=== PATIENT | male | born 1985 | race African-American/Black ===

== ENCOUNTER 2020-06-22 15:32 | Inpatient (IN) | payer OTHER ==
[2020-06-22 17:01] VITALS: BMI 207.3
[2020-06-22] MEDS ORDERED: ACETAMINOPHEN 325 MG TABLET (FP) PO PRN ×2 (17:09)
[2020-06-22] MEDS ORDERED: IBUPROFEN 400 MG TABLET (FP) PO PRN (17:09)
[2020-06-22] MEDS ORDERED: NICOTINE POLACRILEX 2 MG GUM BUC PRN (17:09)
[2020-06-22] MEDS ORDERED: ONDANSETRON *ODT* 4 MG TABLET SL PRN (17:09)
[2020-06-22] MEDS ORDERED: MAGNESIUM HYDROX 2400MG/30ML ORAL SUSPENSION 30 ML CUP PO PRN (17:09)
[2020-06-22] MEDS ORDERED: MAGNESIUM CITRATE 300 ML BOTTLE PO PRN (17:09)
[2020-06-22] MEDS ORDERED: BISMUTH SUBSALICYLATE 524 MG/30 ML UD PO PRN (17:09)
[2020-06-22] MEDS ORDERED: MAG HYDROX/AL HYDROX/SIMETH 30 ML UNIT-DOSE CUP PO PRN (17:09)
[2020-06-22] MEDS ORDERED: MENTHOL/PHENOL 1 EACH UD MM PRN (17:09)
[2020-06-22] MEDS: diazePAM 5 MG TABLET PO SCH ×2 (18:08→22:18)
[2020-06-22] MEDS: METHOCARBAMOL 500 MG TABLET PO PRN (18:08)
[2020-06-22] MEDS: hydrOXYzine PAMOATE 25 MG CAPSULE (FP) PO PRN ×2 (18:08→22:19)
[2020-06-22] MEDS ORDERED: cloNIDine HCL 0.1 MG TABLET PO ONE (18:20)
[2020-06-22] MEDS: MELATONIN 5 MG TABLETS PO SCH (22:17)
[2020-06-22] MEDS: THIAMINE HCL 100 MG TABLET (FP) PO SCH (22:17)
[2020-06-23] MEDS: diazePAM 5 MG TABLET PO SCH ×4 (06:00→22:26)
[2020-06-23 09:47] LABS: HEMATOCRIT 35.2 % (35.4-49); HEMOGLOBIN 11.6 GM/dL (11.7-16.9); MCH 30.8 pg (25.7-33.7); MCHC 32.9 g/dl (32.0-35.9); MEAN CELL VOLUME 93.5 fl (80-96); MEAN PLT VOLUME 8.6 fl (7.5-11.1); PLATELET COUNT 195 K/MM3 (134-434); RBC 3.76 M/mm3 (4.00-5.60); RDW 16.6 % (11.9-15.9); WHITE BLOOD COUNT 4.5 K/mm3 (4.0-10.0)
[2020-06-23] MEDS: ALBUTEROL SO4 HFA INHALER IH SCH ×3 (10:16→22:26)
[2020-06-23 10:17] LABS: ALBUMIN 3.3 g/dl (3.4-5.0); BLOOD UREA NITROGEN 6.7 mg/dL (7-18); CALCIUM 8.7 mg/dL (8.5-10.1)
[2020-06-23] MEDS: NICOTINE 7 MG/24 HOURS TOPICAL PATCH TD SCH (10:17)
[2020-06-23] MEDS: PRENATAL VITAMINS W/ FOLIC ACID TABLET (FP) PO SCH (10:17)
[2020-06-23 10:22] LABS: BILIRUBIN,TOTAL 0.5 mg/dL (0.2-1); TOT PROT 6.5 g/dl (6.4-8.2)
[2020-06-23 10:26] LABS: CREATININE 0.7 mg/dL (0.55-1.3)
[2020-06-23] MEDS: hydrOXYzine PAMOATE 25 MG CAPSULE (FP) PO PRN ×2 (17:38→22:27)
[2020-06-23] MEDS: METHOCARBAMOL 500 MG TABLET PO PRN (17:38)
[2020-06-23] MEDS: MELATONIN 5 MG TABLETS PO SCH (22:26)
[2020-06-23] MEDS: THIAMINE HCL 100 MG TABLET (FP) PO SCH (22:26)
[2020-06-24] MEDS: METHOCARBAMOL 500 MG TABLET PO PRN ×2 (05:43→17:35)
[2020-06-24] MEDS: diazePAM 5 MG TABLET PO SCH ×3 (05:43→22:04)
[2020-06-24] MEDS: hydrOXYzine PAMOATE 25 MG CAPSULE (FP) PO PRN ×3 (05:43→22:04)
[2020-06-24] MEDS: ALBUTEROL SO4 HFA INHALER IH SCH ×2 (05:53→09:30)
[2020-06-24] MEDS: PRENATAL VITAMINS W/ FOLIC ACID TABLET (FP) PO SCH (09:29)
[2020-06-24] MEDS: NICOTINE 7 MG/24 HOURS TOPICAL PATCH TD SCH (09:30)
[2020-06-24] MEDS: diazePAM 5 MG TABLET PO PRN ×2 (09:30→17:37)
[2020-06-24] MEDS ORDERED: ALBUTEROL SO4 HFA INHALER IH PRN (13:13)
[2020-06-24] MEDS: MELATONIN 5 MG TABLETS PO SCH (22:03)
[2020-06-24] MEDS: THIAMINE HCL 100 MG TABLET (FP) PO SCH (22:03)
[2020-06-25] MEDS ORDERED: diazePAM 5 MG TABLET PO ONE (06:00)
[2020-06-25 06:07] LABS: SARS-CoV-2 NAA Not Detected (Not Detected)
[2020-06-25] MEDS: hydrOXYzine PAMOATE 25 MG CAPSULE (FP) PO PRN (06:11)
[2020-06-25] MEDS: METHOCARBAMOL 500 MG TABLET PO PRN (06:11)
[2020-06-25 08:57] VITALS: BP 138/88; PULSE 76; TEMP 96.1
[2020-06-25] MEDS: NICOTINE 7 MG/24 HOURS TOPICAL PATCH TD SCH (10:01)
[2020-06-25] MEDS: PRENATAL VITAMINS W/ FOLIC ACID TABLET (FP) PO SCH (10:02)
== END 2020-06-25 11:08 | disposition home or self-care (01) | DRG 774 ==
LOC: YASAS 15:32 → Y3N 17:31
PROVIDERS: ADMIT Allergy & Immunology; ATTEND Allergy & Immunology
PROC: HZ2ZZZZ Detoxification Services for Substance Abuse Treatment (ICD-10-PCS; principal; 2020-06-22)
DX: F10.230 Alcohol dependence with withdrawal, uncomplicated (principal); F14.20 Cocaine dependence, uncomplicated; F10.220 Alcohol dependence with intoxication, uncomplicated; F17.210 Nicotine dependence, cigarettes, uncomplicated; J45.909 Unspecified asthma, uncomplicated
CPT/HCPCS: 36415; 80053; 85027; 86780; C9803; J0735; U0003; U0005

== ENCOUNTER 2022-12-29 12:24 | Inpatient (IN) | payer OTHER ==
[2022-12-29 14:01] VITALS: BMI 18.2
[2022-12-29] MEDS ORDERED: BENZONATATE 200 MG CAPSULE PO PRN (14:54)
[2022-12-29] MEDS ORDERED: guaiFENesin 600 MG TABLET.ER (FP) PO PRN (14:54)
[2022-12-29] MEDS ORDERED: ACETAMINOPHEN 325 MG TABLET (FP) PO PRN (14:54)
[2022-12-29] MEDS ORDERED: POLYETHYLENE GLYCOL (HEALTHYLAX) 3350 17 GM PACKET PO PRN (14:54)
[2022-12-29] MEDS ORDERED: ONDANSETRON *ODT* 4 MG TABLET SL PRN (14:54)
[2022-12-29] MEDS ORDERED: NALOXONE HCL (KLOXXADO) 8 MG SPRAY NS PRN (14:54)
[2022-12-29] MEDS ORDERED: BENZOCAINE/MENTHOL (CHLORASEPTIC ) LOZENGE MM PRN (14:54)
[2022-12-29] MEDS ORDERED: MAG HYDROX/AL HYDROX/SIMETH 30 ML UNIT-DOSE CUP PO PRN (14:54)
[2022-12-29] MEDS ORDERED: hydrOXYzine PAMOATE 25 MG CAPSULE (FP) PO PRN (14:54)
[2022-12-29] MEDS ORDERED: DICYCLOMINE HCL 10 MG CAPSULE PO PRN (14:54)
[2022-12-29] MEDS ORDERED: LOPERAMIDE HCL 2 MG CAPSULE PO PRN (14:54)
[2022-12-29] MEDS ORDERED: NALOXONE HCL 0.4 MG/ML VIAL IM PRN (14:54)
[2022-12-29] MEDS ORDERED: MAGNESIUM HYDROX 2400MG/30ML ORAL SUSPENSION 30 ML CUP PO PRN (14:54)
[2022-12-29] MEDS ORDERED: BISMUTH SUBSALICYLATE 524 MG/30 ML PO PRN (14:54)
[2022-12-29] MEDS ORDERED: IBUPROFEN 600 MG TABLET (FP) PO PRN (14:54)
[2022-12-29] MEDS ORDERED: IBUPROFEN 400 MG TABLET (FP) PO PRN (14:54)
[2022-12-29] MEDS ORDERED: ALBUTEROL SO4 HFA INHALER IH PRN (15:00)
[2022-12-29] MEDS: PRENATAL VITAMINS W/ FOLIC ACID TABLET (FP) PO SCH (15:51)
[2022-12-29] MEDS: THIAMINE HCL 100 MG TABLET (FP) PO SCH (22:18)
[2022-12-29] MEDS: MELATONIN 5 MG TABLETS PO SCH (22:18)
[2022-12-29] MEDS: METHOCARBAMOL 500 MG TABLET PO PRN (22:18)
[2022-12-30 08:32] LABS: HEMATOCRIT 38.9 % (35.4-49); HEMOGLOBIN 12.4 GM/dL (11.7-16.9); MCH 28.6 pg (25.7-33.7); MCHC 31.8 g/dl (32.0-35.9); MEAN PLT VOLUME 8.3 fl (7.5-11.1); PLATELET COUNT 244 10^3/uL (134-434); RBC 4.32 M/mm3 (4.00-5.60); RDW 15.4 % (11.9-15.9); WHITE BLOOD COUNT 5.7 K/mm3 (4.0-10.0)
[2022-12-30 08:51] LABS: CHLORIDE 101 mmol/L (98-107); POTASSIUM 4.1 mmol/L (3.5-5.1); SODIUM 141 mmol/L (136-145)
[2022-12-30 08:55] LABS: ALBUMIN 3.7 g/dl (3.4-5.0); ANION GAP 6 mmol/L (4-13); CO2 34 mmol/L (21-32)
[2022-12-30 08:56] LABS: GLUCOSE,RANDOM 90 mg/dL (74-106)
[2022-12-30 08:58] LABS: BLOOD UREA NITROGEN 12.2 mg/dL (7-18); CALCIUM 8.7 mg/dL (8.5-10.1); CREATININE 0.8 mg/dL (0.55-1.3)
[2022-12-30 08:59] LABS: SGPT/ALT 18 U/L (13-61)
[2022-12-30 09:00] LABS: BILIRUBIN,TOTAL 0.4 mg/dL (0.2-1)
[2022-12-30 09:01] LABS: ALK PHOS 99 U/L (45-117)
[2022-12-30 09:02] LABS: SGOT/AST 19 U/L (15-37)
[2022-12-30] MEDS ORDERED: diazePAM 5 MG TABLET PO PRN (10:08)
[2022-12-30] MEDS: NICOTINE 21 MG/24 HOURS TOPICAL PATCH TD SCH (10:55)
[2022-12-30] MEDS: PRENATAL VITAMINS W/ FOLIC ACID TABLET (FP) PO SCH (10:55)
[2022-12-30] MEDS: diazePAM 5 MG TABLET PO SCH ×3 (11:10→22:17)
[2022-12-30] MEDS: THIAMINE HCL 100 MG TABLET (FP) PO SCH (22:17)
[2022-12-30] MEDS: MELATONIN 5 MG TABLETS PO SCH (22:17)
[2022-12-30] MEDS: METHOCARBAMOL 500 MG TABLET PO PRN (22:18)
[2022-12-31] MEDS: diazePAM 5 MG TABLET PO SCH ×4 (05:43→22:37)
[2022-12-31] MEDS: NICOTINE 21 MG/24 HOURS TOPICAL PATCH TD SCH (11:19)
[2022-12-31] MEDS: PRENATAL VITAMINS W/ FOLIC ACID TABLET (FP) PO SCH (11:19)
[2022-12-31] MEDS: LACTULOSE 20 GM/30 ML UDC (FOR ORAL USE ONLY) PO SCH ×2 (15:40→22:41)
[2022-12-31] MEDS: METHOCARBAMOL 500 MG TABLET PO PRN (17:49)
[2022-12-31] MEDS: THIAMINE HCL 100 MG TABLET (FP) PO SCH (22:38)
[2022-12-31] MEDS: MELATONIN 5 MG TABLETS PO SCH (22:38)
[2023-01-01] MEDS: LACTULOSE 20 GM/30 ML UDC (FOR ORAL USE ONLY) PO SCH ×3 (05:40→22:42)
[2023-01-01] MEDS: diazePAM 5 MG TABLET PO SCH ×3 (05:41→22:42)
[2023-01-01] MEDS: NICOTINE 21 MG/24 HOURS TOPICAL PATCH TD SCH (11:10)
[2023-01-01] MEDS: PRENATAL VITAMINS W/ FOLIC ACID TABLET (FP) PO SCH (11:10)
[2023-01-01] MEDS: MELATONIN 5 MG TABLETS PO SCH (22:42)
[2023-01-01] MEDS: THIAMINE HCL 100 MG TABLET (FP) PO SCH (22:42)
[2023-01-02] MEDS: LACTULOSE 20 GM/30 ML UDC (FOR ORAL USE ONLY) PO SCH ×3 (06:56→22:17)
[2023-01-02] MEDS: diazePAM 5 MG TABLET PO SCH ×2 (06:56→17:50)
[2023-01-02 09:29] VITALS: RESP 18
[2023-01-02] MEDS: NICOTINE 21 MG/24 HOURS TOPICAL PATCH TD SCH (09:51)
[2023-01-02] MEDS: PRENATAL VITAMINS W/ FOLIC ACID TABLET (FP) PO SCH (09:51)
[2023-01-02] MEDS: THIAMINE HCL 100 MG TABLET (FP) PO SCH (22:17)
[2023-01-02] MEDS: METHOCARBAMOL 500 MG TABLET PO PRN (22:17)
[2023-01-02] MEDS: MELATONIN 5 MG TABLETS PO SCH (22:17)
[2023-01-03] MEDS ORDERED: diazePAM 5 MG TABLET PO ONE (06:00)
[2023-01-03] MEDS: LACTULOSE 20 GM/30 ML UDC (FOR ORAL USE ONLY) PO SCH (06:21)
[2023-01-03 08:39] VITALS: BP 130/79; PULSE 68; TEMP 97.7
[2023-01-03] MEDS: NICOTINE 21 MG/24 HOURS TOPICAL PATCH TD SCH (09:02)
[2023-01-03] MEDS: PRENATAL VITAMINS W/ FOLIC ACID TABLET (FP) PO SCH (09:02)
== END 2023-01-03 11:10 | disposition home or self-care (01) | DRG 774 ==
LOC: YASAS 12:24 → Y3N 15:27
PROVIDERS: ADMIT Allergy & Immunology; ATTEND Surgery
PROC: HZ2ZZZZ Detoxification Services for Substance Abuse Treatment (ICD-10-PCS; principal; 2022-12-29)
DX: F10.230 Alcohol dependence with withdrawal, uncomplicated (principal); F14.20 Cocaine dependence, uncomplicated; F16.20 Hallucinogen dependence, uncomplicated; F17.210 Nicotine dependence, cigarettes, uncomplicated; I10 Essential (primary) hypertension; J45.909 Unspecified asthma, uncomplicated; Z20.822 Contact with and (suspected) exposure to COVID-19
CPT/HCPCS: 36415; 80053; 80307; 82140; 85027; 86780; 87635; 87811; 93005; 93010